=== PATIENT | female | born 1960 | race Caucasian/White ===

== ENCOUNTER → 2017-11-19 13:01 | Outpatient (CLI) | payer MEDICARE, MEDICAID, SELFPAY ==
--- NOTE | 2017-11-19 13:13 | ECHOD_ITS ---
Reason For Study: Dyspnea Procedure This was a 2D Doppler, Color Flow transthoracic echocardiogram. Exam performed in department. Left Ventricle Moderate concentric left ventricular hypertrophy. The estimated ejection fraction is 65 %. Stage 1 diastolic dysfunction. No regional wall motion abnormalities noted. Right Ventricle Normal size and thickness. Normal systolic function. Atria Normal left atrium. Normal right atrium. Normal atrial septum. Mitral Valve The mitral valve is structurally normal. No prolapse or stenosis seen. Trivial mitral valve insufficiency. Tricuspid Valve Normal tricuspid valve. Trivial tricuspid valve insufficiency. Right ventricular systolic pressure estimated to be 19 mmHg. Aortic Valve Trisinus/trileaflet aortic valve. Moderate focal aortic valve thickening. Mild aortic stenosis. Peak aortic valve gradient 24 mmHg. Mean aortic valve gradient 12 mmHg. Pulmonic Valve Normal pulmonic valve. Great Vessels Normal aortic root. Normal arch. Normal inferior vena cava. Inferior vena cava collapse with sniff. Pericardium/Pleural No pericardial effusion. MMode/2D Measurements & Calculations LVIDd: 2.4 cm IVSd: 1.8 cm LVOT diam: 2.0 cm LVIDs: 1.6 cm LVPWd: 1.2 cm LVOT area: 3.1 cm2 RVDd: 2.8 cm FS: 33.5 % Ao root diam: 2.6 cm LAV(MOD-bp): 32.7 ml LA A4 area: 13.9 cm2 LA dimension: 3.8 cm LAV(MOD-bp) Indexed: 19.1 ml/m2 LAV(MOD-sp2): 28.2 ml LAV(MOD-sp4): 32.7 ml RA A4 area: 9.6 cm2 Time Measurements MV dec time: 0.25 sec Doppler Measurements & Calculations MV E max romero: 85.7 cm/sec Lat Peak E' Romero: 11.2 cm/sec Med Peak E' Romero: 7.9 cm/sec MV A max roemro: 116.5 cm/sec E/E' lat: 7.6 E/E' med: 10.8 MV E/A: 0.74 MV V2 max: 121.5 cm/sec MV P1/2t max romero: 93.6 cm/sec Ao V2 max: 244.9 cm/sec MV max P.9 mmHg MV P1/2t: 44.7 msec Ao max P.0 mmHg MV V2 mean: 69.2 cm/sec MV dec slope: 612.7 cm/sec2 Ao V2 mean: 160.9 cm/sec MV mean P.2 mmHg MVA(P1/2t): 4.9 cm2 Ao mean P.8 mmHg MV V2 VTI: 20.0 cm Ao V2 VTI: 44.7 cm MVA(VTI): 3.4 cm2 KULWANT(I,D): 1.5 cm2 KULWANT(V,D): 1.5 cm2 LV V1 max: 119.0 cm/sec SV(LVOT): 68.2 ml PA V2 max: 111.7 cm/sec LV V1 max P.7 mmHg LV V1 mean P.9 mmHg LV V1 mean: 80.4 cm/sec LV V1 VTI: 22.3 cm TR max romero: 191.3 cm/sec TR max P.6 mmHg Interpretation Summary Moderate concentric left ventricular hypertrophy. The estimated ejection fraction is 65 %. Stage 1 diastolic dysfunction. Trivial tricuspid valve insufficiency. Right ventricular systolic pressure estimated to be 19 mmHg. Moderate focal aortic valve thickening of non coronary cusp. . There is no comparison study available. Ordering Physician: Miguel Nolan Referring Physician: Miguel Nolan Performed By: Tha Burnett RCS
== END ==
PROVIDERS: Family Provider Nurse Practitioner Family; PCP Nurse Practitioner Family; Visit Provider Internal Medicine Cardiovascular Disease
DX: I21.4 Non-ST elevation (NSTEMI) myocardial infarction (principal); I25.10 Atherosclerotic heart disease of native coronary artery without angina pectoris; I10 Essential (primary) hypertension; Z95.5 Presence of coronary angioplasty implant and graft
CPT/HCPCS: 93306